=== PATIENT | male | born 1965 | race Caucasian/White ===

== ENCOUNTER → 2021-07-01 10:21 | Outpatient (BNVA) | payer OTHER, SELFPAY | PROVIDERS: PCP Internal Medicine; Visit Provider Internal Medicine Gastroenterology | DX: Z13.89 Encounter for screening for other disorder (principal) ==

== ENCOUNTER 2021-07-02 08:06 | Outpatient (REF) | payer OTHER, SELFPAY ==
--- NOTE | ~2021-07-02 | XR_ITS ---
EXAMINATION: XR CHEST CLINICAL INFORMATION: Abnormal weight loss COMPARISON: None TECHNIQUE: 2 views of the chest were obtained. FINDINGS: Possible mild bilateral apical scarring. No significant abnormality is noted involving the heart, lungs, mediastinum, bony thorax or soft tissues. XR/XR chest 2V IMPRESSION: Unremarkable examination.
[2021-07-02 08:32] LABS: MANUAL DIFF FLAG NO
[2021-07-02 08:48] LABS: Basophils Percent Auto 0.6 % (0-2); Eosinophils Absolute Auto 0.1 X10*3/uL (0.0-0.4); Eosinophils Percent Auto 2.5 % (0-4); Hematocrit 46.9 % (42.0-52.0); Hemoglobin 15.6 g/dl (14.0-18.0); Imm Gran Abs Auto 0.01 X10*3/uL (0.00-0.03); Imm Gran Pct Auto 0.2 % (0.0-0.4); Lymphocytes Absolute Auto 1.2 X10*3/uL (1.2-4.9); Lymphocytes Percent Auto 21.8 % (20-40); Mean Corpuscular HGB Conc 33.3 g/dl (31.0-36.0); Mean Corpuscular Hemoglobin 30.4 pg (27.0-33.0); Mean Corpuscular Volume 91.2 fL (80.0-98.0); Monocytes Absolute Auto 0.4 X10*3/uL (0.1-1.2); Monocytes Percent Auto 8.2 % (2-11); Neutrophils Absolute Auto 3.5 x10*3/uL (2.0-8.3); Neutrophils Percent Auto 66.7 % (45-73); Platelet Count 218 X10*3/uL (160-400); Red Blood Count 5.14 X10*6/uL (4.60-5.80); Red Cell Distribution Width 12.6 % (11.0-16.0); White Blood Count 5.3 X10*3/uL (4.8-10.8)
[2021-07-02 09:19] LABS: Alanine Aminotransferase 31 U/L (0-40); Albumin Level 4.4 g/dL (3.5-5.0); Alkaline Phosphatase 55 U/L (39-117); Anion Gap 13 (12-20); Aspartate Amino Transferase 20 U/L (5-37); Bilirubin Total 0.5 mg/dL (0.0-1.0); Blood Urea Nitrogen 11 mg/dL (9-16); C Reactive Protein 0.07 mg/dL (< or = 0.50); Carbon Dioxide 26 mmol/L (22-29); Chloride 106 mmol/L (96-108); Estimated Glomerular Filt Rate > 60; Glucose Random 105 mg/dL (60-115); Potassium 4.2 mmol/L (3.3-5.1); Sodium 141 mmol/L (135-145); Total Protein 6.9 g/dL (6.5-8.0)
[2021-07-02 09:33] LABS: HBS Num1 15.21 mIU/mL (0-7.99); HBc Num1 1.86 S/CO (0.00-0.79); HBsAGNum1 0.24 S/CO (0.00-0.99); Hepatitis B Surface Antigen Negative (Negative); ~HepC Num1 0.09 S/CO (0.00-0.79); ~Hepatitis B Surface Antibody REACTIVE (Nonreactive); ~Hepatitis C Antibody Nonreactive (Nonreactive)
[2021-07-02 09:42] LABS: Prostate Specific Antigen 1.01 ng/mL (<0.05-4.0); TSH reflex Free T4 2.02 uIU/mL (0.32-4.0)
[2021-07-02 10:34] LABS: HBc Num3 1.92 S/CO; Hepatitis B Core Antibody Reactive (Nonreactive)
[2021-07-02 13:23] LABS: Cortisol Random 17.3 ug/dL
[2021-07-03 03:54] LABS: Hepatitis A Antibody IgM 0.53 Index (0-0.79); ~Hepatitis A Antibody IgM Nonreactive (Nonreactive)
[2021-07-04 18:01] LABS: Transglutaminase Ab IgG <1.0 U/mL; Transglutaminase IgA <1.0 U/mL
[2021-07-05 13:17] LABS: Calcium, Ionized 5.2 mg/dL (4.8-5.6)
== END 2021-07-02 08:07 | disposition home or self-care (01) ==
LOC: HO.XRAY 08:06
PROVIDERS: PCP Internal Medicine; Visit Provider Internal Medicine Gastroenterology
DX: Z12.5 Encounter for screening for malignant neoplasm of prostate (principal); R63.4 Abnormal weight loss; R14.0 Abdominal distension (gaseous); R41.3 Other amnesia; K75.81 Nonalcoholic steatohepatitis (NASH); E83.52 Hypercalcemia; R19.7 Diarrhea, unspecified; G89.29 Other chronic pain; R10.33 Periumbilical pain
CPT/HCPCS: 36415; 71046; 80053; 82330; 82533; 83520; 84153; 84443; 85025; 86140; 86364; 86704; 86706; 86709; 86803; 87340

== ENCOUNTER 2021-07-05 07:51 | Outpatient (REF) | payer OTHER, SELFPAY ==
--- NOTE | ~2021-07-05 | FL_ITS ---
EXAMINATION: FL SMALL BOWEL SERIES CLINICAL INFORMATION: Abnormal weight loss COMPARISON: None TECHNIQUE: Following a ccie image of the abdomen, contrast was administered orally, and interval abdominal radiographs were performed to assess for contrast progression through the small bowel. Following contrast transit through the small bowel and into the colon, the patient was placed on the fluoroscopy table, and multiple spot images were obtained. FINDINGS: [place] image of the abdomen demonstrates a normal bowel gas pattern. There is mild to moderate colonic stool burden. There is fast transit time of contrast material through the small bowel, with contrast present in the colon by 15 minutes. Small bowel loops are of normal caliber throughout the abdomen and pelvis. The jejunal and ileal fold patterns are normal, without evidence of abnormal thickening. No fixed regions of luminal narrowing are seen to suggest stricturing. The terminal ileum demonstrates a normal appearance. FLUOROSCOPY TIME: 1.4 minutes DOSE AREA PRODUCT: 8.763 Gy-cm2 (fournier-centimeter squared) FL/FL small bowel follow through IMPRESSION: Fast transit through the small bowel. This is quicker than typical. No additional abnormality of the small bowel seen at this time. For transit at this speed, consider small bowel processes such as inflammatory bowel disease/celiac disease. Allergy can also lend to fast transit.
== END 2021-07-05 07:52 | disposition home or self-care (01) ==
LOC: HO.XRAY 07:51
PROVIDERS: PCP Internal Medicine; Visit Provider Internal Medicine Gastroenterology
DX: R63.4 Abnormal weight loss (principal); R14.0 Abdominal distension (gaseous)
CPT/HCPCS: 74250

== ENCOUNTER 2021-07-10 08:46 | Outpatient (REF) | payer OTHER, SELFPAY ==
--- NOTE | ~2021-07-10 | US_ITS ---
EXAMINATION: MESENTERIC DOPPLER INTERROGATION CLINICAL INFORMATION: Abdominal distention, weight loss since surgery. Concern for SMA syndrome. COMPARISON: None. TECHNIQUE: Real-time imaging of the abdominal viscera using grayscale and color Doppler techniques. FINDINGS: DOPPLER: Aorta proximal to SMA: 100 cm/s Aorta distal to SMA: 89 cm/s Celiac artery: Inspiration supine: 179 cm/s Expiration supine: 241 cm/s Inspiration erect: 106 cm/s Expiration erect: 123 cm/s Superior mesenteric artery: Proximal: 207 cm/s Mid: 207 cm/s Distal: 126 cm/s HYUN: 251 cm/s Splenic artery: 82 cm/s Hepatic artery: 56 cm/s US/US SMA IMPRESSION: 1. There is focally increased velocity within the celiac artery on supine expiration. Celiac velocities on inspiration and expiration while standing are normal. This finding suggests compression of the celiac artery by the median arcuate ligament. Recommend CTA of the abdomen for further evaluation. 2. Normal superior mesenteric artery velocities. 3. Elevated velocity within the proximal inferior mesenteric artery suggests stenosis.
== END 2021-07-10 08:47 | disposition home or self-care (01) ==
LOC: HO.HMGCX 08:46
PROVIDERS: Visit Provider Internal Medicine Gastroenterology
DX: R14.0 Abdominal distension (gaseous) (principal); R41.3 Other amnesia; R63.4 Abnormal weight loss
CPT/HCPCS: 93976

== ENCOUNTER 2021-07-17 07:53 | Outpatient (REF) | payer OTHER, SELFPAY ==
--- NOTE | ~2021-07-17 | CT_ITS ---
EXAMINATION: CT ANGIOGRAM ABDOMEN AND PELVIS CLINICAL INFORMATION: Celiac artery compression syndrome COMPARISON: Mesenteric ultrasound 07/10/2021 and renal ultrasound 08/28/2020 TECHNIQUE: Multiple axial images were obtained through the abdomen and pelvis following the administration of 100 mL of Omnipaque 350 intravenous contrast. Images were reviewed on a dedicated 3-D workstation. This CT examination was performed using dose optimization techniques as appropriate, variously including the following: *Automated exposure control *Adjustment of mA and/or kV according to patient size (this includes techniques or standardized protocols for targeted exams where dose is matched to indication/reason for exam; i.e. extremities or head) *Use of iterative reconstruction technique DLP: 421 mGy-cm FINDINGS: Vasculature: Visualized portions of the distal descending thoracic aorta are normal in caliber. The abdominal aorta is normal in caliber. The celiac artery is widely patent and normal in caliber. There is a separate takeoff of the left gastric artery. The superior mesenteric artery is widely patent and normal in caliber. Duplicated right and single left renal arteries are widely patent. The inferior mesenteric artery is patent. Bilateral common, external and internal iliac arteries are widely patent. Bilateral common femoral arteries and visualized portions of the bilateral superficial femoral arteries and profundus femoris arteries are widely patent. Nonvascular findings: Visualized lung bases are well aerated. The liver demonstrates normal size, contour and attenuation. The gallbladder is normal in appearance. The pancreas, spleen and adrenal glands are unremarkable. Symmetrically enhancing kidneys without hydronephrosis. There are multiple parapelvic with smaller cortical hypodensities which are inaccurately characterized but statistically cysts. Normal caliber loops of small and large bowel. There is a mild colonic stool burden. There is mild mucosal thickening of the rectum, nonspecific but possibly representing proctitis. Tiny fat-containing umbilical hernia. The bladder is normal in appearance. The prostate gland is mildly enlarged. No gross free pelvic fluid. No inguinal lymphadenopathy. Mild degenerative changes of the spine. CT/CT angio abdomen pelvis IMPRESSION: Unremarkable vascular structures. No CT evidence to suggest celiac artery compression syndrome. Fleischner guidelines were followed.
[2021-07-17] MEDS: iohexoL 350 MG/ML 100 ML INFUS..BTL IV (08:41)
== END 2021-07-17 07:54 | disposition home or self-care (01) ==
LOC: HO.CT 07:53
PROVIDERS: PCP Internal Medicine; Visit Provider Internal Medicine Gastroenterology
DX: I77.4 Celiac artery compression syndrome (principal); K55.1 Chronic vascular disorders of intestine
CPT/HCPCS: 74174; Q9967

== ENCOUNTER 2021-07-30 08:50 | Outpatient (REF) | payer OTHER, SELFPAY ==
--- NOTE | ~2021-07-30 | MR_ITS ---
MRI OF THE BRAIN WITHOUT IV CONTRAST INDICATION: Memory impairment. COMPARISON: CTA head and neck 07/17/2021. TECHNIQUE: Multiplanar multisequence MR imaging of the brain was obtained without IV contrast. FINDINGS: There is no hydrocephalus, extra-axial surface collection, or herniation. There is mild global cerebral volume loss. The major flow voids at the skull base are preserved. There is no acute infarct on diffusion-weighted imaging. There is no intracranial hemorrhage on the gradient recalled echo acquisition. The midline structures are normal. The cerebellar tonsils are normally positioned. The cerebellum and brainstem are normal. The craniocervical junction is normal. Osseous marrow signal intensity is homogenous. The visualized soft tissues are unremarkable. There is mild mucosal thickening throughout the paranasal sinuses. MR/MR brain wo con w neuroquant IMPRESSION: There is mild global cerebral volume loss. Otherwise unremarkable MRI of the brain.
== END 2021-07-30 08:51 | disposition home or self-care (01) ==
LOC: HO.MRI 08:50
PROVIDERS: Visit Provider Internal Medicine Gastroenterology
DX: R41.3 Other amnesia (principal)
CPT/HCPCS: 70551; 76377

== ENCOUNTER 2021-09-10 09:53 | Outpatient (REF) | payer OTHER, SELFPAY ==
[2021-09-10 11:28] LABS: Amylase 77 U/L (28-100); Lipase 33 U/L (8-78)
[2021-09-10 11:35] LABS: Erythrocyte Sedimentation Rate 2 MM/HR (0-15)
== END 2021-09-10 09:54 | disposition home or self-care (01) ==
LOC: HO.LAB 09:53
PROVIDERS: Visit Provider Psychiatry & Neurology Neurology
DX: G31.9 Degenerative disease of nervous system, unspecified (principal)
CPT/HCPCS: 36415; 82150; 83690; 85652

== ENCOUNTER 2022-11-21 08:41 | Outpatient (AMB) | payer OTHER, SELFPAY ==
--- NOTE | 2022-11-21 08:47 | A.OFFVIS_ITS ---
Intake Vital Signs 11/21/22 08:57 Height 5 ft 8 in Weight 176 lb 5.917 oz BMI 26.8 BP 137/84 Blood Pressure Location Lt brachial Position Sitting Pulse 63 Intake Visit Reasons: Follow up Intake Note: Lidya presents in the office as a follow up. CC: He had a hernia surgery - he has gone through a lot of tests and he says he cannot get answers. He states that his stomach is still bloating and has discomfort. No irregular bowel movements. 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 Allergies No Known Allergies [No Known Allergies*] Allergy (Unverified 11/21/22 08:57) HPI Follow up HPI Details 57 yr old m here for f/u RECAP: He has felt unwell since Dec 2020 for b/l inguinal hernias, with robotic surgery He has lost 20# in weight, he has bloating sensation can be worse with food has early satiety, he feels constant pressure after eating he has hx of h pylori, chronic gastritis, treated successfully --confirmed by breath test he goes to toilet every few days, no blood in stool denies nausea or vomiting, occ GERD feels depressed, constantly thinking about his stomach, worried about what will happen to his , can;t sleep he has lack of energy, poor balance no MCMAHAN, no double vision, he has trouble finding his words sometimes, episodes of confusion per He has CT scan which was apparently normal 03/2021 He had EGD, colonoscopy: 05/28 --gastritis as above, H pylori US SMA- possible compression syndrome, CTA was neg GES- with rapid emptying at [address] Summers for second opinion, no intervention INTERIM: he is doing great on duloxetine appetite has been good weight going up no nausea no constipation or diarrhea still has bloating which is his main complaint he eats a lot of mateus bread, he eats cheese daily, yoghurt sometimes, doesn't drink milk, occ chocolate EXAM: GENERAL: The patient is well appearing VITAL SIGNS:see workflow HEENT: Nonicteric sclerae, PERRLA, EOMI. Oropharynx clear. Moist mucous membranes. Conjunctivae appear well perfused. No thyroid mass. CHEST: Chest wall is nontender. HEART: Regular rate and rhythm without murmurs. LUNGS: Clear to auscultation bilaterally. ABDOMEN: Soft, positive bowel sounds, nontender, no organomegaly.no flank tenderness, small umbilical hernia, SKIN: No rash, no excessive bruising, petechiae, or purpura. NEUROLOGIC: Cranial nerves II-XII intact without motor/sensory deficit. DOLORES, MS: normal A/P: 1/ bloating, possibly lactose intoleranc e vs SIBO 2/ umbilical hernia Plan: 1/ trial of augmentin 2/ align thereafter 3/ trial of lacotse avoidance, stop panda se for 1 week and milk, yoghurt 4/ refuses surgical referral for hernia right now [facility] Surgical History History of hydrocelectomy (2017) Hx of bilateral inguinal hernia repair (12/2020) Hx of colonoscopy History of esophagogastroduodenoscopy (EGD) Family History Mother HTN (hypertension) Father Diabetes Prostate cancer Maternal Uncle Prostate cancer Social History Household Members: Spouse Alcohol intake: never Patient Tobacco Use Status: Never used Tobacco Physical Exam Vital Signs: Last Vital Signs Pulse 63 11/21/22 08:57 BP 137/84 11/21/22 08:57 BMI result Body Mass Index 26.8 Assessment & Plan Assessment & Plan (1) Abdominal distension: Code(s): R14.0 - Abdominal distension (gaseous) Medications: New amoxicillin-pot clavulanate 500-125 mg (Augmentin) 1 tab PO TID 42 tabs 0RF 2 weeks Coding Level of Care Code Est Pt Level 4 (38106) Diagnoses Abdominal distension R14.0
[2022-11-21 08:57] VITALS: BP 137/84; PULSE 63; BMI 26.8
== END 2022-11-21 09:38 | disposition home or self-care (01) ==
PROVIDERS: PCP Internal Medicine; Visit Provider Internal Medicine Gastroenterology
DX: R14.0 Abdominal distension (gaseous) (principal)
CPT/HCPCS: 99214

== ENCOUNTER → 2022-11-21 08:41 | Outpatient (BNVA) | payer OTHER, SELFPAY | PROVIDERS: PCP Internal Medicine; Visit Provider Internal Medicine Gastroenterology ==